=== PATIENT | male | born 1955 | race Caucasian/White ===

== ENCOUNTER → 2016-04-07 | Outpatient (CLI) | payer OTHER ==
[2016-04-07 12:44] VITALS: BP 123/83; PULSE 80; RESP 16; TEMP 98
--- NOTE | 2016-04-08 12:26 | P.PN ---
Subjective This is follow-up visit for this patient with a history of severe and chronic low back pain secondary to lumbar degenerative disc disease, lumbar facet arthropathy, we have done diagnostic medial branch block and it was successful and patient supposed to have radiofrequency ablation of the medial branch, but the patient had acute ischemic stroke and he has to be placed on Plavix and the patient cannot stop his Plavix for a few days because he had acute stroke, and we have to delay the radiofrequency ablation of the medial branch until patient will be able to hold his Plavix for 1 week, , and is currently on pain medications [place] 10/325 every 6 hours , methadone 5 mg every 8 hours, Neurontin 800 mg 3 times a day Patient denies any side effects of the medication, denies excessive drowsiness or sleepiness, denies suicidal ideation, and reports that the current pain medication is NOT helping To control the pain and improve activity of daily living Physical Examinations : 1-Constitutiona : Cooperative , not in acute distress . 2-HEENT : nech ; supple , no Lymphadenopathy , no Thyromegaly , normal thyroid size . eyes : no ptosis , no icterus, no photophobia . ENT : normal of hearing , normal oropharynx , no Thrush . 3- Respiratory : Chest clear to auscultations Bilaterally , no wheezing , no Rhonchi . 4- Cardiovascular : regular rate and rhythem , S1 , S2 , no S3 , no S4. 5- Gastrointestinal : abdomen soft no tenderness , bowel sounds positive all four quadrents , no organomegally . 6- Genitourinary : Defferred . 7- neurologic : Cranial nerve II to XII intact , no focal neurological deffecit . 8-psychatric : alert , oriented X 3 , appropriate affect , intact judgment and insight . 9-Lymphatic : no Lymphadenopathy . 10- musculoskeltal : exams of the cervical spine = motor strength normal bilateral upper extremities facet loading test cervical area positive. exams of the Lumber spine = motor strength lower extremities ,thigh and legs .4/5 lumber facet Loading Test positive Assessment and plan = - Chronic low back pain secondary to lumbar degenerative disc disease , lumbar spondylosis with facet arthropathy without myelopathy , Patient will be good candidate to have radiofrequency ablation of the medial branch (patient had positive results after the diagnostic block ), currently on Plavix , had ischemic stroke 2 months ago, patient could be scheduled to have radiofrequency of the medial branch lumbar area , in a few months if the neurologist allow us to hold the Plavix -chronic and current use of high-risk medication (Opioids). The patient was counseled about risk of opioid use, psychological risk associated with opioids and was orally counseled to not overuse , abuse , divert ,or sell dictations to take medications as prescribed only , and to restore medication in safe location , and patient counseled against driving while using narcotic medications, and also not to use alcohol or any illicit recreational drugs the patient's verbalized understanding that the lack of compliance will result in failure to renew narcotic prescription and possible discharge from the clinic - diagnoses, prognosis, and treatment options including but not limited to physical therapy, surgical interventions, interventional therapies and medication management including narcotics and adjuvant medication were discussed with the patient and all questions answered to the patient's satisfaction. -medication refile =1-[place] 10/325 every 6 hours dispense 120 with one refill 2- methadone 5 mg every 8 hours dispense 90 with 1 refill 3- Neurontin 800 mg every 8 hours dispense 90 with 1 refill and he will follow up in the pain clinic in 2 months Objective - Vital Signs Vital signs: Vital Signs Temp 98 F 04/07/16 12:36 Pulse 80 04/07/16 12:36 Resp 16 04/07/16 12:36 BP 123/83 04/07/16 12:36 Pulse Ox 96 04/07/16 12:36 Intake & Output 04/07/16 04/08/16 04/08/16 18:59 06:59 18:59 Weight 77.564 kg
== END | disposition home or self-care (01) ==
LOC: PNWHC3 12:18
PROVIDERS: ATTEND Specialist
DX: M51.36 Other intervertebral disc degeneration, lumbar region (principal); G89.29 Other chronic pain; M54.5 Low back pain; M47.816 Spondylosis without myelopathy or radiculopathy, lumbar region; Z79.891 Long term (current) use of opiate analgesic
CPT/HCPCS: 99211

== ENCOUNTER → 2016-04-14 | Outpatient (CLI) | payer OTHER ==
--- NOTE | 2016-04-14 11:57 | FL ---
EXAMINATION TYPE: FL barium swallow w video DATE OF EXAM: 04/14/2016 11:34 AM MODIFIED SWALLOW / DEGLUTITION STUDY CLINICAL HISTORY: Dysphagia. History of prior stroke with aspiration TECHNIQUE: Deglutition study is performed utilizing thin liquid barium, honey and nectar thick liqui d barium, barium thick applesauce, and barium coated cracker. A total of 3 minutes 14 seconds of fluo roscopic time was utilized during procedure. COMPARISON: None. FINDINGS: The oral and pharyngeal phases show satisfactory initiation and propagation with all modali ties tested initially. Some delay or weakening with premature spilling is seen towards end of exam. Satisfactory mastication is seen with solid modalities tested. There is deep penetration with chinedu aspiration that does not initiate cough reflex with thin liquid barium. A single large bolus of necta r thick liquid barium also causes aspiration without cough reflex. Other more viscous modalities show no evidence of penetration or aspiration. Mild to severe pharyngeal residuals are noted more promine nt with more viscous modalities. IMPRESSION: Recurrent Penetration and some chinedu aspiration with thin liquid barium remains present. Please refer to speech therapist notes for further details if necessary.
== END | disposition home or self-care (01) ==
LOC: RADFLMAIN 11:12
PROVIDERS: ATTEND Family Medicine
DX: R13.10 Dysphagia, unspecified (principal)
CPT/HCPCS: 74230

== ENCOUNTER → 2016-06-02 | Outpatient (CLI) | payer MEDICARE, OTHER ==
[2016-06-02 12:12] VITALS: BP 116/71; PULSE 84; RESP 18; TEMP 97.8
--- NOTE | 2016-06-03 18:48 | P.PN ---
Subjective This is follow-up visit for this patient with a history of severe and chronic low back pain secondary to lumbar degenerative disc disease lumbar facet arthropathy, we have done interventional pain management injection, a classic medial branch block lumbar area and patient Had a good result with the diagnostic block was supposed to have radiofrequency ablation of the medial branch lumbar area, and the Radiofrequency ablation was delayed because patient had ischemic stroke on his currently on Plavix, and he cannot stop it until September 2016 Currently patient on 1- Neurontin 800 mg 3 times a day 2-methadone 5 mg 3 times a day 3- [place] 10/325 every 6 hours Patient denies any side effects of the medication, denies excessive drowsiness or sleepiness, denies suicidal ideation, and reports that the current pain medication is NOT helping To control the pain and improve activity of daily living Physical Examinations : 1-[place]stitutiona : Cooperative , not in acute distress . 2-HEENT : nech ; supple , no Lymphadenopathy , no Thyromegaly , normal thyroid size . eyes : no ptosis , no icterus, no photophobia . ENT : normal of hearing , normal oropharynx , no Thrush . 3- Respiratory : Chest clear to auscultations Bilaterally , no wheezing , no Rhonchi . 4- Cardiovascular : regular rate and rhythem , S1 , S2 , no S3 , no S4. 5- Gastrointestinal : abdomen soft no tenderness , bowel sounds positive all four quadrents , no organomegally . 6- Genitourinary : Defferred . 7- neurologic : Cranial nerve II to XII intact , no focal neurological deffecit . 8-psychatric : alert , oriented X 3 , appropriate affect , intact judgment and insight . 9-Lymphatic : no Lymphadenopathy . 10- musculoskeltal : exams of the Lumber spine = motor strength lower extremities ,thigh and legs .4/5 deep tendon reflexes : normal Knee Jerk , normal ankle Jerk . lumber facet Loading Test positive Assessment and plan = - Chronic low back pain secondary to lumbar degenerative disc disease , lumbar spondylosis with facet arthropathy without myelopathy , - chronic and current use of high-risk medication (Opioids). The patient was counseled about risk of opioid use, psychological risk associated with opioids and was orally counseled to not overuse , divert,or sell dictations to take medications as prescribed only , and to restore medication in safe location , and the patient counseled against driving while using narcotic medications, and also not to use alcohol or any illicit recreational drugs, the patient's verbalized understanding that the lack of compliance will result in failure to renew narcotic prescription and possible discharge from the clinic - diagnoses, prognosis, and treatment options including but not limited to physical therapy, surgical interventions, interventional therapies , and medication management including narcotics and adjuvant medication were discussed with the patient and all The questions answered -medication management = [place] 10/325 every 6 hours dispensed 120 with one refill , methadone 5 mg every 8 hours dispense 90 with 1 refill Neurontin 800 mg 3 times a day dispensed 90 with 1 refill and he will follow up in 2 months -procedure= normal at this point, consider radiofrequency ablation of medial branch lumbar area when he is able to stop Plavix for 1 week Objective - Vital Signs Vital signs: Vital Signs Temp 97.8 F 06/02/16 12:03 Pulse 84 06/02/16 12:03 Resp 18 06/02/16 12:03 BP 116/71 06/02/16 12:03 Pulse Ox Intake & Output 06/02/16 06/03/16 06/03/16 18:59 06:59 18:59 Weight 77.111 kg
== END ==
LOC: PNWHC3 11:39
PROVIDERS: ATTEND Specialist
DX: M51.36 Other intervertebral disc degeneration, lumbar region (principal); M47.816 Spondylosis without myelopathy or radiculopathy, lumbar region; M46.86 Other specified inflammatory spondylopathies, lumbar region; G89.29 Other chronic pain; Z87.891 Personal history of nicotine dependence
CPT/HCPCS: 99211

== ENCOUNTER → 2016-08-24 | Outpatient (CLI) | payer MEDICARE ==
[2016-08-24 12:05] VITALS: BP 100/68; PULSE 80; RESP 16; TEMP 98
--- NOTE | 2016-08-24 12:35 | P.PN ---
Progress Note - Text Patient returns for followup for chronic groin pain from ilioinguinal neuralgia and axial back pain without radiation to the lower extremities. Patient recently underwent second lumbar MBB earlier in January 2016 which has lasted for >3 weeks' interval of significant improvement in pain, but unfortunately sustained a stroke after, and it is believed to be due to his being off Plavix. Patient continues on methadone, [place], and Neurontin medications for pain with good relief. Patient denies adverse drug effects from medications. Today , pt denies new-onset weakness, bowel/bladder incontinence, or any other signs or symptoms of cauda equina syndrome. There are no signs of acute intoxication, and no indications of medication diversion or overuse. In addition to above, 13-point review of systems is also negative for chest pain , shortness of breath, changes in vision, changes in hearing, new onset weakness , abdominal pain, diarrhea, extreme fatigue, malaise, fever, skin changes, homicidal or suicidal ideation, or bowel or bladder incontinence. Vital Signs: Reviewed in EMR Gen: WDWN, AAOx3, NAD HEENT: NCAT, EOMI, hearing grossly normal Pulm: resp unlabored Abd: soft, NT, ND Neck: supple, trachea midline ROM in flexion lumbar spine: reduced ROM in extension lumbar spine: reduced Lumbar paravertebral tenderness: ++ Facet loading: ++ bilateral, R > L SI joint tenderness: mildly + R side, neg L side Valentin's test: + bilateral, R >> L Straight leg raise: neg bilateral Neuro: CN II-XII grossly intact, muscle strength lower extremities PRESERVED Imaging: Reviewed in EMR Assessment: 1. lumbar spondylosis without myelopathy 2. sacroiliitis 3. chronic pain syndrome Plan: 1. Explanation: Opioid and psychological risk scores were reviewed. Diagnoses , prognoses, and multiple treatment options including but not limited to physical therapy, interventional therapies, adjuvant medical therapies, narcotic medication therapies, and surgery were discussed with the patient and all questions were answered to the patient's satisfaction. 2. Opioid agreement: Patient has previously signed narcotic agreement, and was orally counseled to not overuse, abuse, divert, or cell medications, and to take them as prescribed by only 1 healthcare provider. The patient was also counseled to store opioid medications in a safe and preferably locked location. Patient was also counseled against driving while using narcotic medications and also to not use alcohol or any illicit or recreational drugs. The patient verbalized understanding that lack of compliance with any of the above and likely result in failure to renew narcotic prescriptions, possible discharge from the clinic, and possible legal ramifications thereafter if indicated. 3. Counseling: The patient was counseled extensively on SMOKING CESSATION, BODY MASS INDEX, EXERCISE. Specifically, the patient was instructed regarding the importance of smoking cessation, weight loss, and exercise in the context of both chronic pain and overall health. 4. Procedures: discussed lumbar RFA with patient, he wishes to defer for now 5. Consultations: None 6. Investigations: None for now 7. Medications: Methadone 5 mg #90, [place] 10/325 (decreased to #105 for next month, #90 after that), Neurontin 800 mg #90, lidocaine ointment x 2 months 8. Disposition: f/u for re-eval in 8 weeks PQRS measures: 1-Patient's medications are documented in the chart. 2-Tobacco use is negative 3-Patient has had a pneumococcal vaccine. 4-Advanced care planning discussed, patient unable to give. 5-Opioid contract previously signed with the patient. 6-Pain positive, follow-up visit or procedure scheduled 7-Patient's blood pressure measured and documented, and patient will follow up with the primary care due to hypertension. 8-Patient's weight was measured, and body mass index ABOVE the normal limits, and counseling was done. Patient instructed to follow up with PCP. 9-Patient WAS NOT identified as an unhealthy alcohol user.
== END | disposition home or self-care (01) ==
LOC: PNWHC3 11:37
PROVIDERS: ATTEND Anesthesiology
DX: M47.816 Spondylosis without myelopathy or radiculopathy, lumbar region (principal); M46.1 Sacroiliitis, not elsewhere classified; G89.4 Chronic pain syndrome
CPT/HCPCS: 99211

== ENCOUNTER → 2016-10-19 | Outpatient (CLI) | payer MEDICARE ==
[2016-10-19 11:57] VITALS: BP 109/60; PULSE 77; RESP 18; TEMP 98.3
--- NOTE | 2016-10-19 13:19 | P.PN ---
Progress Note - Text This is a 61-year-old male with history of left ilioinguinal neuralgia and axial lower back pain due to lumbar spondylosis. The patient recently had a stroke in January 2016. He still feels dizzy in the morning since his stroke. His pain has been well-controlled with [place] and the Neurontin. He is alert oriented 3 in no apparent distress today he denies any new neurologic symptoms since his last visit to our clinic. He does not show any oversedation symptoms. He does not show any drug-seeking behavior. The patient had multiple injections in his back and the left ilioinguinal nerve which gave him temporary relief of pain. Right now he is on Plavix due to his recent stroke. Today I will refill his oral analgesics and we'll see him in 3 months from now.
== END | disposition home or self-care (01) ==
LOC: PNWHC3 11:42
PROVIDERS: ATTEND Anesthesiology
DX: M47.816 Spondylosis without myelopathy or radiculopathy, lumbar region (principal)
CPT/HCPCS: 99211

== ENCOUNTER → 2017-02-28 | Outpatient (CLI) | payer MEDICARE ==
[2017-02-28 14:51] VITALS: BP 113/76; PULSE 79; RESP 16
--- NOTE | 2017-02-28 15:15 | P.PN ---
Progress Note - Text Progress Note Date: 02/28/17 This is a 61-year-old male with history of left ilioinguinal neuralgia and lumbar spondylosis without myelopathy. The patient is on Plavix due to stroke. He tried to switch from Neurontin to Lyrica however Lyrica made him very weak and he had to stop using it right now he takes only methadone and [place] for his pain. The patient does not feel that Neurontin was helping his pain anyway. Alert oriented 3 in no apparent distress. He does not show any signs of oversedation and he does not show any drug-seeking behavior. He denies any side effects to the above-mentioned medications except for constipation that he treats easily with MiraLAX. Today I will give her prescription for 3 months of methadone and [place]. As of methadone so the risk of prolonged QT is minimal ,however we can do 12 lead EKG on his next visit to be on the safe side.
== END ==
LOC: PNWHC3 13:47
PROVIDERS: ATTEND Anesthesiology
DX: M47.816 Spondylosis without myelopathy or radiculopathy, lumbar region (principal); Z79.899 Other long term (current) drug therapy
CPT/HCPCS: 99211

== ENCOUNTER → 2017-05-23 | Outpatient (CLI) | payer MEDICARE ==
[2017-05-23 14:22] VITALS: BP 114/69; PULSE 75; RESP 16
--- NOTE | 2017-05-23 15:02 | P.PN ---
Progress Note - Text Progress Note Date: 05/23/17 This is a 61-year-old male with history of left ilioinguinal neuralgia and lumbar spondylosis without myelopathy. The patient is on Plavix due to stroke. He tried to switch from Neurontin to Lyrica however Lyrica made him very weak and he had to stop using it right now he takes only methadone and [place] for his pain. The patient is Alert oriented 3 in no apparent distress. He does not show any signs of oversedation and he does not show any drug-seeking behavior. He denies any side effects to the above-mentioned medications except for constipation that he treats easily with MiraLAX. chronic and current use of high-risk medication (Opioids). The patient was counseled about risk of opioid use, psychological risk associated with opioids and was orally counseled to not overuse , abuse , divert ,or sell dictations to take medications as prescribed only , and to restore medication in safe location , and patient counseled against driving while using narcotic medications, and also not to use alcohol or any illicit recreational drugs the patient's verbalized understanding that the lack of compliance will result in failure to renew narcotic prescription and possible discharge from the clinic - diagnoses, prognosis, and treatment options including but not limited to physical therapy, surgical interventions, interventional therapies and medication management including narcotics and adjuvant medication were discussed with the patient and all questions answered to the patient's satisfaction. I will give the patient prescription for 3 months of methadone and [place]. I will also do urine drug screen on him today.
== END | disposition home or self-care (01) ==
LOC: PNWHC3 13:33
PROVIDERS: ATTEND Anesthesiology
DX: G58.8 Other specified mononeuropathies (principal); M47.816 Spondylosis without myelopathy or radiculopathy, lumbar region; Z79.899 Other long term (current) drug therapy; Z79.891 Long term (current) use of opiate analgesic
CPT/HCPCS: 99211

== ENCOUNTER → 2017-08-15 | Outpatient (CLI) | payer MEDICARE ==
[2017-08-15 12:54] VITALS: BP 102/66; PULSE 82; RESP 16
--- NOTE | 2017-08-16 14:44 | P.PAINPG ---
Subjective Progress Note Date: 08/15/17 This is a follow-up visit for this 62 years old male with a history of severe and chronic low back pain and left groin pain, his day course with lumbar spondylosis with lumbar facet arthropathy without myelopathy, and left ilioinguinal neuralgia, in the past we have done left ilioinguinal nerve block to treat his left groin pain, and also we have done medial branch block, patient currently getting Plavix because he had recent stroke, and he continued to use methadone 5 mg every 8 hours, and [place] 10/325 every 8 hours when necessary, and Lyrica 75 mg 3 times a day, and he is getting prescription for Xanax 0.25 3 times a day from his primary care, patient reported the current pain medication helping him to control his pain and he denies any side effect of the medication, he denies any excessive drowsiness or sleepiness and he reported the current medication management is being appropriately, he denies any change in the bowel movement organization he denies any fever or night sweats . Objective - Vital Signs Vital signs: Vital Signs Temp Pulse 82 08/15/17 12:50 Resp 16 08/15/17 12:50 BP 102/66 08/15/17 12:50 Pulse Ox 95 08/15/17 12:50 Intake & Output 08/15/17 08/16/17 08/16/17 18:59 06:59 18:59 Weight 73.028 kg - Exam Physical Examinations : 1-[place] : Cooperative , not in acute distress . 2-HEENT : nech ; supple , no Lymphadenopathy , normal thyroid size . eyes : no ptosis , no icterus , no photophobia . ENT : normal of hearing , normal oropharynx , no Thrush . 3- Respiratory : Chest clear to auscultations Bilaterally , no wheezing , no Rhonchi . 4- Cardiovascular : regular rate and rhythem , S1 , S2 , no S3 , no S4. 5- Gastrointestinal : abdomen soft no tenderness , bowel sounds , no organomegally . 6- Genitourinary : Defferred . 7- neurologic : Cranial nerve II to XII intact , no focal neurological deffecit . 8-psychatric : alert , oriented X 3 , appropriate affect , intact judgment and insight . 9-Lymphatic : no Lymphadenopathy . 10- musculoskeltal : Allodynia on the left and groin area Assessment and Plan Plan: Assessment and plan= chronic low back pain secondary to , lumbar spondylosis with lumbar facet arthropathy . Chronic left groin pain secondary to left ilioinguinal neuralgia chronic and current use of high-risk medication (opioids) Patient denies any side effects of the current pain medication and the current treatment/medication helping the patient to do activity of daily living , Diagnoses, prognosis, treatment options, including but not limited to physical therapy, medication management, interventional therapies, and surgery, were discussed with the patient All the questions answered The narcotic consent was signed and patient agreed and understood the side effects and complications of opioid treatment. Patient signed the narcotic agreement, and was orally counseled, not to overuse, not to abuse, not to Divert , not tp sell pain medication, and to take it as prescribed only, Patient was counseled not to drive or operate heavy equipment while using narcotic medication, and advised not to use alcohol or any Illicit drugs while using the narcotis, the patient's verbalized understanding that lack of compliance with any of the above instructions, will likely to cause discharge from, the pain service, not to renew his narcotic prescriptions Medication managements= patient will be given prescription refills for Lyrica 75 mg 3 times a day dispense 90 with 1 refill, methadone 5 mg every 8 hours dispense 90 with 1 refill [place] 10/325 every 8 hours dispense 90 with 1 refill , note = because patient currently on opioid and also is receiving Xanax 0.25 mg from his primary care, and this week the patient at high risk for respiratory depression, The form regarding the risk of combination of benzodiazepine , and opiate was faxed to the primary care Next visit we'll do urine drug screen , Time with Patient: Less than 30 PQRS Measure Charge Sheet Measure #130: Documentation of Current Meds in Medical Chart: Patient's medications documented in chart Measure #226: Tobacco Use: Screen & Cessation Intervention: Pt screened for tobacco use AND intervention given Measure #111: Pneumonia Vaccination: Pneumococcal vaccine administered or previously received Measure #47: Advance Care Plan: Advance care planning discussed & documented, pt chose/unable to give Measure #412: Opioid Treatment Agreement: Documented signed opioid trtmnt agreemnt min once during opioid trtmnt Measure #408: Opioid Therapy Follow-up Evaluation: Patient had f/u eval minimum every 3 months during opioid therapy Measure #317: Preventitive Care & Scrn High Bld Press & F/U: Normal blood pressure, f/u not required Measure #128: Body Mass Index (BMI) Screening & Follow-up: BMI documented ABOVE normal parameters - f/u documented Measure #131: Pain Assessment & Follow-up: Pain positive & plan documented, Follow-up scheduled Measure #431: Unhealthy Alcohol Use Preventative Care & Scrn: Patient not identified as an unhealthy alcohol user PQRS Narrative: Smoking Status Former smoker Do You Want the Pneumonia Vaccine Up to Date Vaccine AT THIS TIME? Narcotic Agreement Date Signed 04/07/16 Blood Pressure 102/66 Pain Intensity [Lower Back] 7 Scale Used Numeric (1 - 10) Hx Alcohol Use (MH) Yes: OCC. 1 q d Home Medications: Ambulatory Orders Omeprazole [PriLOSEC] 20 cap PO DAILY PRN 07/24/13 Clopidogrel [Plavix] 75 mg PO DAILY 01/14/14 Levothyroxine Sodium [Synthroid] 75 mcg PO QAM 07/01/14 Atorvastatin [Lipitor] 20 mg PO HS 09/19/15 PARoxetine [Paxil] 20 mg PO DAILY 02/10/16 Multivitamins, Thera [Multivitamin (formulary)] 1 each PO DAILY@1200 #30 tab 05/27 ALPRAZolam [Xanax] 0.25 mg PO TID PRN 04/07/16 Aspirin 81 mg PO DAILY 04/07/16 Chlorthalidone 25 mg PO DAILY 04/07/16 Lisinopril [Prinivil] 5 mg PO BID 04/07/16 Tamsulosin HCl [Flomax] 1 cap PO DAILY 04/07/16 Finasteride [Proscar] 5 mg PO HS 06/02/16 Lidocaine 5% Oint [Xylocaine 5% Oint] 1 applic TOPICAL TID PRN #1 tube 08/24/16 HYDROcodone/APAP 10-325MG [[place] 10-325] 1 tab PO Q8H PRN #90 tab 08/15/17 HYDROcodone/APAP 10-325MG [[place] 10-325] 10 mg PO Q8HR #90 tab 08/15/17 Methadone HCl [Dolophine HCl] 5 mg PO Q8HR #90 tab 08/15/17 Methadone [Dolophine] 5 mg PO Q8HR #90 tab 08/15/17 Pregabalin [Lyrica] 75 mg PO TID #90 cap 08/15/17 Controlled Substance Measures - Controlled Substance Measures Is patient prescribed a controlled substance at discharge?: Yes When asked, does pt state using other controlled substances?: Yes If prescribed controlled substance>3 days was MAPS reviewed?: Yes If Rx opioid, was Start Talking consent form obtained?: Yes If opioid is for acute pain is fill amount 7 days or less?: No Was information provided regarding opioid addiction?: Yes
== END | disposition home or self-care (01) ==
LOC: PNWHC3 11:57
PROVIDERS: ATTEND Specialist
DX: G89.29 Other chronic pain (principal); M47.816 Spondylosis without myelopathy or radiculopathy, lumbar region; M46.96 Unspecified inflammatory spondylopathy, lumbar region; R10.32 Left lower quadrant pain; G57.82 Other specified mononeuropathies of left lower limb; Z79.891 Long term (current) use of opiate analgesic; Z87.891 Personal history of nicotine dependence; Z79.02 Long term (current) use of antithrombotics/antiplatelets; Z79.899 Other long term (current) drug therapy; Z79.82 Long term (current) use of aspirin
CPT/HCPCS: 99211

== ENCOUNTER → 2017-10-17 | Outpatient (CLI) | payer MEDICARE ==
[2017-10-17 13:28] VITALS: BP 100/55; PULSE 73; RESP 18; TEMP 98.1
--- NOTE | 2017-10-17 14:00 | P.PAINPG ---
Subjective Progress Note Date: 10/17/17 This is follow-up visit for this patient with a history of severe and chronic low back pain Diagnosed with , lumbar spondylosis with facet arthropathy, and left groin pain diagnosed with left ilioinguinal neuralgia We have done interventional pain procedures, ilioinguinal nerve block and diagnostic medial branch block Patients currently on Plavix, as he had recent stroke and his primary care/ neurologist recommended not to stop his Plavix Patient currently on methadone 5 mg every 8 hours, and [place] 10/325 every 8 hours when necessary for breakthrough pain Patient denies any side effects of the medication, denies excessive drowsiness or sleepiness, denies suicidal ideation, and reports that the current pain medication is helping to control the pain ,and improve activity of daily living Patient denies any motor or sensory deficit , patient denies any fever or night sweats, denies any change in the bowel movements or urination Patient used Lyrica in the past and he had side effects from it, and he used Neurontin in the past he had no benefit from it Physical Examinations : 1-Constitutional : Cooperative , not in acute distress . 2-HEENT : nech ; supple , no Lymphadenopathy , no Thyromegaly , normal thyroid size . eyes : no ptosis , no icterus, no photophobia . ENT : normal of hearing , normal oropharynx , no Thrush . 3- Respiratory : Chest clear to auscultations Bilaterally , no wheezing , no Rhonchi . 4- Cardiovascular : regular rate and rhythem , S1 , S2 , no S3 , no S4. 5- Gastrointestinal : abdomen soft no tenderness , bowel sounds positive all four quadrents , no organomegally . 6- Genitourinary : Defferred . 7- neurologic: Cranial nerve II to XII intact , no focal neurological deffecit . 8- Psychatric: alert , oriented X 3 , appropriate affect , intact judgment and insight . 9- Lymphatic : no Lymphadenopathy . 10- Musculoskeltal : exams of the Lumber spine =motor strength lower extremities ,thigh and legs .5/5 Assessment and plan = Chronic low back pain secondary to , lumbar spondylosis with facet arthropathy without myelopathy Chronic severe left groin pain, secondary to left ilioinguinal neuralgia chronic and current use of high-risk medication (Opioids). The patient was counseled about risk of opioid use, psychological risk associated with opioids and was orally counseled to not overuse , divert,or sell dictations to take medications as prescribed only , and to restore medication in safe location , the patient counseled against driving while using narcotic medications , and also not to use alcohol or any illicit recreational drugs, patient's verbalized understanding that the lack of compliance will result in failure to renew narcotic prescription and possible discharge from the clinic - diagnoses, prognosis, and treatment options including but not limited to physical therapy, surgical interventions, interventional therapies , and medication management including narcotics and adjuvant medication were discussed with the patient and all the questions answered Prescription refill for methadone 5 mg every 8 hours dispense 90 with 1 refill, [place] 10/325 every 8 hours dispense 90 with 1 refill Patient is not a candidate for interventional pain management because his currently on Plavix, and he cannot stop it for a few days because his high risk for stroke Urine drug screen ordered today Objective - Vital Signs Vital signs: Vital Signs Temp 98.1 F 10/17/17 13:21 Pulse 73 10/17/17 13:21 Resp 18 10/17/17 13:21 BP 100/55 10/17/17 13:21 Pulse Ox Intake & Output 10/16/17 10/17/17 10/17/17 18:59 06:59 18:59 Weight 72.575 kg PQRS Measure Charge Sheet Measure #130: Documentation of Current Meds in Medical Chart: Patient's medications documented in chart Measure #226: Tobacco Use: Screen & Cessation Intervention: Pt screened for tobacco use AND intervention given Measure #111: Pneumonia Vaccination: Pneumococcal vaccine administered or previously received Measure #47: Advance Care Plan: Advance care planning discussed & documented, pt chose/unable to give Measure #412: Opioid Treatment Agreement: Documented signed opioid trtmnt agreemnt min once during opioid trtmnt Measure #408: Opioid Therapy Follow-up Evaluation: Patient had f/u eval minimum every 3 months during opioid therapy Measure #317: Preventitive Care & Scrn High Bld Press & F/U: Normal blood pressure, f/u not required Measure #128: Body Mass Index (BMI) Screening & Follow-up: BMI documented within normal parameters Measure #131: Pain Assessment & Follow-up: Pain positive & plan documented, Follow-up scheduled Measure #431: Unhealthy Alcohol Use Preventative Care & Scrn: Patient not identified as an unhealthy alcohol user PQRS Narrative: Smoking Status Current every day smoker Do You Want the Pneumonia Vaccine Up to Date Vaccine AT THIS TIME? Narcotic Agreement Date Signed 04/07/16 Blood Pressure 100/55 Pain Intensity [Lower Back] 7 Pain Intensity [Left Lower 4 Abdomen] Hx Alcohol Use (MH) Yes: OCC. 1 q d Home Medications: Ambulatory Orders Omeprazole [PriLOSEC] 20 cap PO DAILY PRN 07/24/13 Clopidogrel [Plavix] 75 mg PO DAILY 01/14/14 Levothyroxine Sodium [Synthroid] 75 mcg PO QAM 07/01/14 Atorvastatin [Lipitor] 20 mg PO HS 09/19/15 PARoxetine [Paxil] 20 mg PO DAILY 02/10/16 Multivitamins, Thera [Multivitamin (formulary)] 1 each PO DAILY@1200 #30 tab 05/27 ALPRAZolam [Xanax] 0.25 mg PO TID PRN 04/07/16 Aspirin 81 mg PO DAILY 04/07/16 Chlorthalidone 25 mg PO DAILY 04/07/16 Lisinopril [Prinivil] 5 mg PO BID 04/07/16 Tamsulosin HCl [Flomax] 1 cap PO DAILY 04/07/16 Finasteride [Proscar] 5 mg PO HS 06/02/16 Lidocaine 5% Oint [Xylocaine 5% Oint] 1 applic TOPICAL TID PRN #1 tube 08/24/16 HYDROcodone/APAP 10-325MG [[place] 10-325] 10 mg PO Q8HR #90 tab 10/17/17 Hydrocodone/Acetaminophen [[place] 10-325] 1 tab PO Q8H PRN 30 Days #90 tab Methadone HCl [Dolophine HCl] 5 mg PO Q8H 30 Days #90 tab 10/17/17 Methadone HCl [Dolophine HCl] 5 mg PO Q8HR #90 tab 10/17/17 Controlled Substance Measures - Controlled Substance Measures Is patient prescribed a controlled substance at discharge?: Yes When asked, does pt state using other controlled substances?: No If prescribed controlled substance>3 days was MAPS reviewed?: Yes If Rx opioid, was Start Talking consent form obtained?: Yes If opioid is for acute pain is fill amount 7 days or less?: No Was information provided regarding opioid addiction?: Yes
== END | disposition home or self-care (01) ==
LOC: PNWHC3 12:34
PROVIDERS: ATTEND Specialist
DX: G89.29 Other chronic pain (principal); M47.816 Spondylosis without myelopathy or radiculopathy, lumbar region; M46.96 Unspecified inflammatory spondylopathy, lumbar region; G57.82 Other specified mononeuropathies of left lower limb; R10.30 Lower abdominal pain, unspecified; Z87.891 Personal history of nicotine dependence; Z79.891 Long term (current) use of opiate analgesic; Z79.02 Long term (current) use of antithrombotics/antiplatelets; Z79.899 Other long term (current) drug therapy; Z79.82 Long term (current) use of aspirin
CPT/HCPCS: 80307; G0482; G0463; 99211

== ENCOUNTER → 2018-01-09 | Outpatient (CLI) | payer MEDICARE ==
[2018-01-09 12:47] VITALS: BP 105/68; PULSE 89; RESP 18; TEMP 98
--- NOTE | 2018-01-09 13:20 | P.PAINPG ---
Subjective Progress Note Date: 01/09/18 This is follow-up visit for this patient with a history of severe and chronic low back pain Diagnosed with , lumbar spondylosis with facet arthropathy, and left groin pain diagnosed with left ilioinguinal neuralgia We have done interventional pain procedures, ilioinguinal nerve block and diagnostic medial branch block Patients currently on Plavix, as he had recent stroke, and his primary care/ neurologist recommended not to stop his Plavix Patient currently on methadone 5 mg every 8 hours, and [place] 10/325 every 8 hours when necessary for breakthrough pain Patient denies any side effects of the medication, denies excessive drowsiness or sleepiness, denies suicidal ideation, and reports that the current pain medication is helping to control the pain ,and improve activity of daily living Patient denies any motor or sensory deficit , patient denies any fever or night sweats, denies any change in the bowel movements or urination Patient used Lyrica in the past and he had side effects from it, and he used Neurontin in the past he had no benefit from it Physical Examinations : 1-Constitutional : Cooperative , not in acute distress . 2-HEENT : nech ; supple , no Lymphadenopathy , no Thyromegaly , normal thyroid size . eyes : no ptosis , no icterus, no photophobia . ENT : normal of hearing , normal oropharynx , no Thrush . 3- Respiratory : Chest clear to auscultations Bilaterally , no wheezing , no Rhonchi . 4- Cardiovascular : regular rate and rhythem , S1 , S2 , no S3 , no S4. 5- Gastrointestinal : abdomen soft no tenderness , bowel sounds positive all four quadrents , no organomegally . 6- Genitourinary : Defferred . 7- neurologic: Cranial nerve II to XII intact , no focal neurological deffecit . 8- Psychatric: alert , oriented X 3 , appropriate affect , intact judgment and insight . 9- Lymphatic : no Lymphadenopathy . 10- Musculoskeltal : exams of the Lumber spine =motor strength lower extremities ,thigh and legs .5/5 Assessment and plan = Chronic low back pain secondary to , lumbar spondylosis with facet arthropathy without myelopathy , patient had a good result after the diagnostic medial branch block And we couldn't proceed with the radiofrequency ablation of the medial branch because patient had stroke, and he was placed on Plavix, and he cannot stop the Plavix, causing his primary care concerned about patient getting another stroke. Chronic severe left groin pain, secondary to left ilioinguinal neuralgia chronic and current use of high-risk medication (Opioids). The patient was counseled about risk of opioid use, psychological risk associated with opioids and was orally counseled to not overuse , divert,or sell dictations to take medications as prescribed only , and to restore medication in safe location , the patient counseled against driving while using narcotic medications , and also not to use alcohol or any illicit recreational drugs, patient's verbalized understanding that the lack of compliance will result in failure to renew narcotic prescription and possible discharge from the clinic - diagnoses, prognosis, and treatment options including but not limited to physical therapy, surgical interventions, interventional therapies , and medication management including narcotics and adjuvant medication were discussed with the patient and all the questions answered Prescription refill for methadone 5 mg every 8 hours dispense 90 with 1 refill, [place] 10/325 every 8 hours dispense 90 with 1 refill Patient is not a candidate for interventional pain management because his currently on Plavix, and he cannot stop it for a few days because his high risk for stroke Urine drug screen reviewed, and it was appropriate. MAPS reviewed ,and it was appropriate Objective - Vital Signs Vital signs: Vital Signs Temp 98 F 01/09/18 12:37 Pulse 89 01/09/18 12:37 Resp 18 01/09/18 12:37 BP 105/68 01/09/18 12:37 Pulse Ox 98 01/09/18 12:37 Intake & Output 01/08/18 01/09/18 01/09/18 18:59 06:59 18:59 Weight 72.575 kg PQRS Measure Charge Sheet Measure #130: Documentation of Current Meds in Medical Chart: Patient's medications documented in chart Measure #226: Tobacco Use: Screen & Cessation Intervention: Pt screened for tobacco use AND intervention given Measure #111: Pneumonia Vaccination: Pneumococcal vaccine administered or previously received Measure #47: Advance Care Plan: Advance care planning discussed & documented, pt chose/unable to give Measure #412: Opioid Treatment Agreement: Documented signed opioid trtmnt agreemnt min once during opioid trtmnt Measure #408: Opioid Therapy Follow-up Evaluation: Patient had f/u eval minimum every 3 months during opioid therapy Measure #317: Preventitive Care & Scrn High Bld Press & F/U: Normal blood pressure, f/u not required Measure #128: Body Mass Index (BMI) Screening & Follow-up: BMI documented within normal parameters Measure #131: Pain Assessment & Follow-up: Pain positive & plan documented, Follow-up scheduled Measure #431: Unhealthy Alcohol Use Preventative Care & Scrn: Patient not identified as an unhealthy alcohol user PQRS Narrative: Smoking Status Current every day smoker Do You Want the Pneumonia Vaccine Up to Date Vaccine AT THIS TIME? Narcotic Agreement Date Signed 04/07/16 Blood Pressure 105/68 Pain Intensity [Left Groin] 4 Pain Intensity [Lower Back] 4 Hx Alcohol Use (MH) Yes: OCC. 1 q d Home Medications: Ambulatory Orders Omeprazole [PriLOSEC] 20 cap PO DAILY PRN 07/24/13 Clopidogrel [Plavix] 75 mg PO DAILY 01/14/14 Levothyroxine Sodium [Synthroid] 75 mcg PO QAM 07/01/14 Atorvastatin [Lipitor] 20 mg PO HS 09/19/15 PARoxetine [Paxil] 20 mg PO DAILY 02/10/16 Multivitamins, Thera [Multivitamin (formulary)] 1 each PO DAILY@1200 #30 tab 05/27 ALPRAZolam [Xanax] 0.25 mg PO TID PRN 04/07/16 Aspirin 81 mg PO DAILY 04/07/16 Chlorthalidone 25 mg PO DAILY 04/07/16 Lisinopril [Prinivil] 5 mg PO BID 04/07/16 Tamsulosin HCl [Flomax] 1 cap PO DAILY 04/07/16 Finasteride [Proscar] 5 mg PO HS 06/02/16 Lidocaine 5% Oint [Xylocaine 5% Oint] 1 applic TOPICAL TID PRN #1 tube 08/24/16 HYDROcodone/APAP 10-325MG [[place] 10-325] 1 tab PO Q8HR PRN 30 Days #90 tab 01/09 HYDROcodone/APAP 10-325MG [[place] 10-325] 10 mg PO Q8HR #90 tab 01/09/18 Methadone HCl [Dolophine HCl] 5 mg PO Q8H 30 Days #90 tab 01/09/18 Methadone HCl [Dolophine HCl] 5 mg PO Q8H 30 Days #90 tab 01/09/18 Controlled Substance Measures - Controlled Substance Measures Is patient prescribed a controlled substance at discharge?: Yes When asked, does pt state using other controlled substances?: No If prescribed controlled substance>3 days was MAPS reviewed?: Yes If Rx opioid, was Start Talking consent form obtained?: Yes If opioid is for acute pain is fill amount 7 days or less?: No Was information provided regarding opioid addiction?: Yes
== END | disposition home or self-care (01) ==
LOC: PNWHC3 12:05
PROVIDERS: ATTEND Specialist
DX: G89.29 Other chronic pain (principal); M47.816 Spondylosis without myelopathy or radiculopathy, lumbar region; M46.96 Unspecified inflammatory spondylopathy, lumbar region; F17.200 Nicotine dependence, unspecified, uncomplicated; Z79.891 Long term (current) use of opiate analgesic; Z79.02 Long term (current) use of antithrombotics/antiplatelets; Z79.899 Other long term (current) drug therapy; Z79.82 Long term (current) use of aspirin
CPT/HCPCS: 99211

== ENCOUNTER → 2018-02-27 | Outpatient (CLI) | payer MEDICARE ==
[2018-02-27 12:13] VITALS: BP 106/59; PULSE 77; RESP 16
--- NOTE | 2018-02-27 12:30 | P.PN ---
Subjective Progress Note Date: 02/24/18 This is follow-up visit for this patient with a history of severe and chronic low back pain Diagnosed with , lumbar spondylosis with facet arthropathy, and left groin pain diagnosed with left ilioinguinal neuralgia We have done interventional pain procedures, ilioinguinal nerve block and diagnostic medial branch block Patients currently on Plavix, as he had recent stroke, and his primary care/ neurologist recommended not to stop his Plavix Patient currently on methadone 5 mg every 8 hours, and [place] 10/325 every 8 hours when necessary for breakthrough pain Patient denies any side effects of the medication, denies excessive drowsiness or sleepiness, he denies suicidal ideation, and reports that the current pain medication is helping to control the pain ,and improve activity of daily living Patient denies any motor or sensory deficit , patient denies any fever or night sweats, denies any change in the bowel movements or urination Patient used Lyrica in the past and he had side effects from it, and he used Neurontin in the past he had no benefit from it Physical Examinations : 1-Constitutional : Cooperative , not in acute distress . 2-HEENT : nech ; supple , no Lymphadenopathy , no Thyromegaly , normal thyroid size . eyes : no ptosis , no icterus, no photophobia . ENT : normal of hearing , normal oropharynx , no Thrush . 3- Respiratory : Chest clear to auscultations Bilaterally , no wheezing , no Rhonchi . 4- Cardiovascular : regular rate and rhythem , S1 , S2 , no S3 , no S4. 5- Gastrointestinal : abdomen soft no tenderness , bowel sounds positive all four quadrents , no organomegally . 6- Genitourinary : Defferred . 7- neurologic: Cranial nerve II to XII intact , no focal neurological deffecit . 8- Psychatric: alert , oriented X 3 , appropriate affect , intact judgment and insight . 9- Lymphatic : no Lymphadenopathy . 10- Musculoskeltal : exams of the Lumber spine =motor strength lower extremities ,thigh and legs .5/5 Assessment and plan = Chronic low back pain secondary to , lumbar spondylosis with facet arthropathy without myelopathy , patient had a good result after the diagnostic medial branch block And we couldn't proceed with the radiofrequency ablation of the medial branch because patient had stroke, and he was placed on Plavix, and he cannot stop the Plavix, causing his primary care concerned about patient getting another stroke. Chronic severe left groin pain, secondary to left ilioinguinal neuralgia chronic and current use of high-risk medication (Opioids). The patient was counseled about risk of opioid use, psychological risk associated with opioids and was orally counseled to not overuse , divert,or sell dictations to take medications as prescribed only , and to restore medication in safe location , the patient counseled against driving while using narcotic medications , and also not to use alcohol or any illicit recreational drugs, patient's verbalized understanding that the lack of compliance will result in failure to renew narcotic prescription and possible discharge from the clinic - diagnoses, prognosis, and treatment options including but not limited to physical therapy, surgical interventions, interventional therapies , and medication management including narcotics and adjuvant medication were discussed with the patient and all the questions answered Prescription refill for methadone 5 mg every 8 hours dispense 90 with 1 refill, [place] 10/325 every 8 hours dispense 90 with 1 refill Patient is not a candidate for interventional pain management because his currently on Plavix, and he cannot stop it for a few days because his high risk for stroke Urine drug screen reviewed, and it was appropriate. MAPS reviewed ,and it was appropriate PQRS Measure Charge Sheet Measure #130: Documentation of Current Meds in Medical Chart: Patient's medications documented in chart Measure #226: Tobacco Use: Screen & Cessation Intervention: Pt screened for tobacco use AND intervention given Measure #111: Pneumonia Vaccination: Pneumococcal vaccine administered or previously received Measure #47: Advance Care Plan: Advance care planning discussed & documented, pt chose/unable to give Measure #412: Opioid Treatment Agreement: Documented signed opioid trtmnt agreemnt min once during opioid trtmnt Measure #408: Opioid Therapy Follow-up Evaluation: Patient had f/u eval minimum every 3 months during opioid therapy Measure #317: Preventitive Care & Scrn High Bld Press & F/U: Normal blood pressure, f/u not required Measure #128: Body Mass Index (BMI) Screening & Follow-up: BMI documented within normal parameters Measure #131: Pain Assessment & Follow-up: Pain positive & plan documented, Follow-up scheduled Measure #431: Unhealthy Alcohol Use Preventative Care & Scrn: Patient not identified as an unhealthy alcohol user PQRS Narrative: Home Medications= Omeprazole [PriLOSEC] 20 cap PO DAILY PRN 05/13/14 Clopidogrel [Plavix] 75 mg PO DAILY 01/14/14 Levothyroxine Sodium [Synthroid] 75 mcg PO QAM 07/01/14 Atorvastatin [Lipitor] 20 mg PO HS 09/19/15 PARoxetine [Paxil] 20 mg PO DAILY 02/10/16 Multivitamins, Thera [Multivitamin (formulary)] 1 each PO DAILY@1200 #30 tab 05/27 ALPRAZolam [Xanax] 0.25 mg PO TID PRN 04/07/16 Aspirin 81 mg PO DAILY 04/07/16 Chlorthalidone 25 mg PO DAILY 04/07/16 Lisinopril [Prinivil] 5 mg PO BID 04/07/16 Tamsulosin HCl [Flomax] 1 cap PO DAILY 04/07/16 Finasteride [Proscar] 5 mg PO HS 06/02/16 Lidocaine 5% Oint [Xylocaine 5% Oint] 1 applic TOPICAL TID PRN #1 tube 08/24/16 HYDROcodone/APAP 10-325MG [[place] 10-325] 1 tab PO Q8HR PRN 30 Days #90 tab 01/09 HYDROcodone/APAP 10-325MG [[place] 10-325] 10 mg PO Q8HR #90 tab 01/09/18 Methadone HCl [Dolophine HCl] 5 mg PO Q8H 30 Days #90 tab 01/09/18 Methadone HCl [Dolophine HCl] 5 mg PO Q8H 30 Days #90 tab 01/09/18 - Controlled Substance Measures Is patient prescribed a controlled substance at discharge?: Yes When asked, does pt state using other controlled substances?: No If prescribed controlled substance>3 days was MAPS reviewed?: Yes If Rx opioid, was Start Talking consent form obtained?: Yes If opioid is for acute pain is fill amount 7 days or less?: No Was information provided regarding opioid addiction?: Yes
== END | disposition home or self-care (01) ==
LOC: PNWHC3 11:41
PROVIDERS: ATTEND Specialist
DX: G89.29 Other chronic pain (principal); M47.816 Spondylosis without myelopathy or radiculopathy, lumbar region; M46.96 Unspecified inflammatory spondylopathy, lumbar region; R10.32 Left lower quadrant pain; G58.8 Other specified mononeuropathies; Z79.891 Long term (current) use of opiate analgesic; Z79.02 Long term (current) use of antithrombotics/antiplatelets; Z79.899 Other long term (current) drug therapy; Z79.82 Long term (current) use of aspirin
CPT/HCPCS: 99211

== ENCOUNTER → 2018-04-24 | Outpatient (CLI) | payer MEDICARE ==
[2018-04-24 12:37] VITALS: BP 105/64; PULSE 95; RESP 16; TEMP 98.1
--- NOTE | 2018-04-24 12:55 | P.PN ---
Progress Note - Text Progress Note Date: 04/24/18 Patient returns for followup for chronic groin pain, low back pain, and central pain syndrome. Patient is currently been on chronic methadone use with good results for pain control. We decreased his [place] from 120 tablets to 90 tablets and is tolerating it well. No complications or side effects from the medication. There's been no change to his overall pain condition he still has some weakness in the distribution of his stroke, as well as some low back pain axial nature as well as inguinal pain. Today, pt denies new-onset weakness, bowel/bladder incontinence, or any other signs or symptoms of cauda equina syndrome. There are no signs of acute intoxication, and no indications of medication diversion or overuse. In addition to above, 13-point review of systems is also negative for chest pain , shortness of breath, changes in vision, changes in hearing, new onset weakness , abdominal pain, diarrhea, extreme fatigue, malaise, fever, skin changes, homicidal or suicidal ideation, or bowel or bladder incontinence. Vital Signs: Reviewed in EMR Gen: WDWN, AAOx3, NAD HEENT: NCAT, EOMI, hearing grossly normal Pulm: resp unlabored Abd: soft, NT, ND Neck: supple, trachea midline ROM in flexion lumbar spine: reduced ROM in extension lumbar spine: reduced Lumbar paravertebral tenderness: ++ Facet loading: ++ bilateral, R > L SI joint tenderness: mildly + R side, neg L side Valentin's test: + bilateral, R >> L Straight leg raise: neg bilateral Neuro: CN II-XII grossly intact, muscle strength lower extremities PRESERVED Imaging: Reviewed in EMR Assessment: 1. lumbar spondylosis without myelopathy 2. sacroiliitis 3. chronic pain syndrome 4. Ilioinguinal pain 5. Central pain syndrome Plan: 1. Explanation: Opioid and psychological risk scores were reviewed. Diagnoses , prognoses, and multiple treatment options including but not limited to physical therapy, interventional therapies, adjuvant medical therapies, narcotic medication therapies, and surgery were discussed with the patient and all questions were answered to the patient's satisfaction. 2. Opioid agreement: Patient has previously signed narcotic agreement, and was orally counseled to not overuse, abuse, divert, or cell medications, and to take them as prescribed by only 1 healthcare provider. The patient was also counseled to store opioid medications in a safe and preferably locked location. Patient was also counseled against driving while using narcotic medications and also to not use alcohol or any illicit or recreational drugs. The patient verbalized understanding that lack of compliance with any of the above and likely result in failure to renew narcotic prescriptions, possible discharge from the clinic, and possible legal ramifications thereafter if indicated. 3. Counseling: The patient was counseled extensively on SMOKING CESSATION, BODY MASS INDEX, EXERCISE. Specifically, the patient was instructed regarding the importance of smoking cessation, weight loss, and exercise in the context of both chronic pain and overall health. 4. Procedures: 5. Consultations: None 6. Investigations: We will conduct a 12-lead EKG today to assess QT interval. patient has not had one in our records for the past 3 years. 7. Medications: Methadone 5 mg #90, [place] 10/325 (decreased to #105 for next month, #90 after that), Neurontin 800 mg #90, lidocaine ointment x 2 months 8. Disposition: f/u for re-eval in 8 weeks PQRS measures: 1-Patient's medications are documented in the chart. 2-Tobacco use is negative 3-Patient has had a pneumococcal vaccine. 4-Advanced care planning discussed, patient unable to give. 5-Opioid contract previously signed with the patient. 6-Pain positive, follow-up visit or procedure scheduled 7-Patient's blood pressure measured and documented, and patient will follow up with the primary care due to hypertension. 8-Patient's weight was measured, and body mass index ABOVE the normal limits, and counseling was done. Patient instructed to follow up with PCP. 9-Patient WAS NOT identified as an unhealthy alcohol user.
== END ==
LOC: PNWHC3 11:51
PROVIDERS: ATTEND Anesthesiology
DX: G89.4 Chronic pain syndrome (principal); M47.816 Spondylosis without myelopathy or radiculopathy, lumbar region; M46.1 Sacroiliitis, not elsewhere classified; Z79.891 Long term (current) use of opiate analgesic; Z79.899 Other long term (current) drug therapy
CPT/HCPCS: 93005; G0463; 99211

== ENCOUNTER → 2018-06-19 | Outpatient (CLI) | payer MEDICARE ==
[2018-06-19 12:15] VITALS: BP 105/72; PULSE 83; RESP 16
--- NOTE | 2018-06-20 21:41 | P.PN ---
Subjective Progress Note Date: 06/19/18 This is follow-up visit for this patient with a history of severe and chronic low back pain Diagnosed with , lumbar spondylosis with facet arthropathy, and left groin pain diagnosed with left ilioinguinal neuralgia We have done interventional pain procedures, ilioinguinal nerve block and diagnostic medial branch block Patients currently on Plavix, as he had recent stroke, and his primary care/neurologist recommended not to stop his Plavix Patient currently on methadone 5 mg every 8 hours, and [place] 10/325 every 8 hours when necessary for breakthrough pain Patient denies any side effects of the medication, denies excessive drowsiness or sleepiness, denies suicidal ideation, and reports that the current pain medication is helping to control the pain ,and improve activity of daily living Patient denies any motor or sensory deficit , patient denies any fever or night sweats, denies any change in the bowel movements or urination Patient used Lyrica in the past and he had side effects from it, and he used Neurontin in the past he had no benefit from it Physical Examinations : 1-Constitutional : Cooperative , not in acute distress . 2-HEENT : nech ; supple , no Lymphadenopathy , no Thyromegaly , normal thyroid size . eyes : no ptosis , no icterus, no photophobia . ENT : normal of hearing , normal oropharynx , no Thrush . 3- Respiratory : Chest clear to auscultations Bilaterally , no wheezing , no Rhonchi . 4- Cardiovascular : regular rate and rhythem , S1 , S2 , no S3 , no S4. 5- Gastrointestinal : abdomen soft no tenderness , bowel sounds positive all f our quadrents , no organomegally . 6- Genitourinary : Defferred . 7- neurologic: Cranial nerve II to XII intact , no focal neurological deffecit . 8- Psychatric: alert , oriented X 3 , appropriate affect , intact judgment and insight . 9- Lymphatic : no Lymphadenopathy . 10- Musculoskeltal : exams of the Lumber spine =motor strength lower extremities ,thigh and legs .5/5 Facet loading test positive bilaterally Assessment and plan = Chronic low back pain secondary to , lumbar spondylosis with facet ar thropathy without myelopathy , patient had a good result after the diagnostic medial branch block And we couldn't proceed with the radiofrequency ablation of the medial branch because patient had stroke, and he was placed on Plavix, and he cannot stop the Plavix, causing his primary care concerned about patient getting another stroke. Chronic severe left groin pain, secondary to left ilioinguinal neuralgia chronic and current use of high-risk medication (Opioids). The patient was counseled about risk of opioid use, psychological risk associated with opioids and was orally counseled to not overuse , divert,or sell dictations to take medications as prescribed only , and to restore medication in safe location , the patient counseled against driving while using narcotic medications, and also not to use alcohol or any illicit recreational drugs, patient's verbalized understanding that the lack of compliance will result in failure to renew narcotic prescription and possible discharge from the clinic - diagnoses, prognosis, and treatment options including but not limited to physical therapy, surgical interventions, interventional therapies , and medication management including narcotics and adjuvant medication were discussed with the patient and all the questions answered Prescription refill for methadone 5 mg every 8 hours dispense 90 with 1 refill, [place] 10/325 every 8 hours dispense 90 with 1 refill The future we'll consider doing diagnostic medial branch block lumbar area without holding the Plavix will use 25-gauge needle, 21-iktly-wav Plavix only when we do the RFA if he has a positive result, this option will be discussed with the patient in the next visit Urine drug screen and previously and it was appropriate MAPS reviewed ,and it was appropriate PQRS Measure Charge Sheet Measure #130: Documentation of Current Meds in Medical Chart: Patient's medications documented in chart Measure #226: Tobacco Use: Screen & Cessation Intervention: Pt screened for tobacco use AND intervention given Measure #111: Pneumonia Vaccination: Pneumococcal vaccine administered or previously received Measure #47: Advance Care Plan: Advance care planning discussed & documented, pt chose/unable to give Measure #412: Opioid Treatment Agreement: Documented signed opioid trtmnt agreemnt min once during opioid trtmnt Measure #408: Opioid Therapy Follow-up Evaluation: Patient had f/u eval minimum every 3 months during opioid therapy Measure #317: Preventitive Care & Scrn High Bld Press & F/U: Normal blood pressure, f/u not required Measure #128: Body Mass Index (BMI) Screening & Follow-up: BMI documented within normal parameters Measure #131: Pain Assessment & Follow-up: Pain positive & plan documented, Follow-up scheduled Measure #431: Unhealthy Alcohol Use Preventative Care & Scrn: Patient not identified as an unhealthy alcohol user PQRS Narrative: - Controlled Substance Measures Is patient prescribed a controlled substance at discharge?: Yes When asked, does pt state using other controlled substances?: No If prescribed controlled substance>3 days was MAPS reviewed?: Yes If Rx opioid, was Start Talking consent form obtained?: Yes If opioid is for acute pain is fill amount 7 days or less?: No Was information provided regarding opioid addiction?: Yes Objective - Vital Signs Vital signs: Vital Signs Temp Pulse 83 06/19/18 12:12 Resp 16 06/19/18 12:12 BP 105/72 06/19/18 12:12 Pulse Ox 100 06/19/18 12:12
== END ==
LOC: PNWHC3 11:37
PROVIDERS: ATTEND Specialist
DX: G89.29 Other chronic pain (principal); M47.816 Spondylosis without myelopathy or radiculopathy, lumbar region; M46.96 Unspecified inflammatory spondylopathy, lumbar region; Z79.891 Long term (current) use of opiate analgesic; Z79.899 Other long term (current) drug therapy
CPT/HCPCS: 99211

== ENCOUNTER → 2018-08-14 | Outpatient (CLI) | payer MEDICARE ==
[2018-08-14 11:26] VITALS: BP 126/80; PULSE 86; RESP 18
--- NOTE | 2018-08-14 11:44 | P.PN ---
Subjective Progress Note Date: 08/14/18 Jadiel 63-year-old gentleman presents today for follow-up. He has chronic pain secondary to his low back pain and degenerative disc disease, pain secondary to left flank pain after having hernia surgery. He continues to have pain across his low back radiates into both legs. Reports pain down his legs to about the knee on both sides. He also reports pain along with numbness and tingling along the left flank and left lower abdomen. He reports he had this pain for many years and is doing well with the current pain medication regimens. He had multiple injections reports none of them really have helped significantly. At this point continues use methadone 5 mg 3 times per day as well as [place] 10 mg 2-3 times per day for breakthrough pain. He reports medication significant help him and denies any side effects in the medications. I inquired about his use of Xanax as is been filled in his maps. He reports he uses 2-3 times a week. I've discussed on the Xanax along with opioids and significantly increases risks for respiratory depression and . I made it very clear to him his using these medications together will break his narcotics contract and discussed that after the next prescription he should not have the filled anymore. The reports that she is ready sent out the next prescription to be filled since a use a mail order. Objective - Vital Signs Vital signs: Vital Signs Temp Pulse 86 08/14/18 11:21 Resp 18 08/14/18 11:21 BP 126/80 08/14/18 11:21 Pulse Ox 96 08/14/18 11:21 Intake & Output 08/13/18 08/14/18 08/14/18 18:59 06:59 18:59 Weight 71.214 kg - Exam General: Awake and alert oriented 3 no distress Respiratory exam: No audible wheezing no accessory muscle usage Cardiovascular exam: regular rate, palpable bilateral pulses, no lower extremity edema Abdominal exam: No distention nontender to palpation Cervical spine: Normal alignment, Spurling's negative, facet loading negative, Clinical Exercise Physiologist strength is 5/5, abebe negative Lumbar spine: Loss of lumbar lordosis, normal alignment, tender to palpation over bilateral paraspinal muscles, facet loading is positive bilaterally. Straight leg raise is negative. Limited range of motion due to pain with flexion, extension and side bending. Tenderness palpation over both SI joints as well as paraspinal muscles Sacroiliac joints: Tender to palpation bilateral, SHANA is negative, [place] negative Neuro exam: Normal sensation in bilateral upper extremities, deep tendon reflexes are 2+ bilateral upper extremities. Normal sensation in bilateral lower extremities. Deep tendon reflexes are 2+ in lower extremities Psych exam: Cooperative, appropriate mood Assessment and Plan Assessment: #1 lumbar radiculopathy #2 lumbar degenerative disc disease #3 ilioinguinal neuralgia Plan: On today's visit discussed with him the risks and benefits of using these medications. I advised him to stop using Xanax moving forward. I advised him that even though he is not using the need to stop phone the prescriptions. I made it very clear that if they continue to fill the Xanax prescriptions with no longer be able to write the opioid medications as scores against a narcotics contract. We will also take a urine drug screen on today's visit and will follow-up on the results on the next time he is here. We'll given 2 scripts today dated 28 days apart we will see with the patient back in 10-11 weeks
== END | disposition home or self-care (01) ==
LOC: PNWHC3 11:06
PROVIDERS: ATTEND Hospitalist
DX: G89.29 Other chronic pain (principal); M51.16 Intervertebral disc disorders with radiculopathy, lumbar region; Z79.891 Long term (current) use of opiate analgesic
CPT/HCPCS: 99211

== ENCOUNTER → 2018-10-23 | Outpatient (CLI) | payer MEDICARE ==
--- NOTE | 2018-10-25 13:40 | P.PAINPG ---
Subjective Progress Note Date: 10/23/18 Jadiel 63-year-old gentleman presents today for follow-up. He has chronic pain secondary to his low back pain and degenerative disc disease, pain secondary to left groin pain after having hernia surgery. He continues to have pain across his low back radiates into both legs. Pain is rated as 1-6 on 10. Pain is worse with activity, lifting, bending and better with pain medications, laying supine. He reports he had this pain for many years and is doing well with the current pain medication regimens. At this point continues use methadone 5 mg 3 times per day as well as [place] 10 mg 2-3 times per day for breakthrough pain. He reports medication significant help him and denies any side effects in the medications. I inquired about his use of Xanax as is been filled in his maps. At previous visits, we have discussed that the use of Xanax along with opioids significantly increases risks for respiratory depression and . At the last visit he stated that he would no longer fill Xanax, however since last prescription with a mail order prescription was filled on 08/20/2018. He has had no prescription since then. UDS was done at last visit which in addition to being positive for opioids, was positive for alcohol. On review of records, it appears that the UDS in 2018 was also positive for alcohol. Patient reports that he only drinks 3-4 drinks per week, over the weekends. We had a lengthy discussion about the risks of combination of opioids and alcohol. Objective - Vital Signs Vital signs: Reviewed in EMR - Exam General: Awake and alert oriented 3 no distress Respiratory exam: No audible wheezing no accessory muscle usage Cardiovascular exam: no lower extremity edema Abdominal exam: No distention Lumbar spine: Loss of lumbar lordosis, normal alignment, tender to palpation over bilateral paraspinal muscles, facet loading is positive bilaterally. Abdiel test is positive on the right. Straight leg raise is negative. Limited range of motion due to pain with flexion, extension and side bending. Tenderness palpation over both SI joints as well as paraspinal muscles Neuro exam: Normal sensation in bilateral lower extremities. Deep tendon reflexes are 2+ in lower extremities. Negative clonus. Cranial nerves are grossly intact Psych exam: Cooperative, appropriate mood Assessment and Plan Assessment: #1 lumbar radiculopathy #2 lumbar degenerative disc disease #3 ilioinguinal neuralgia #4 opioid dependence Plan: On today's visit discussed with him the risks and benefits of using these medications, particularly in combination with alcohol. I informed him that today we will write a one-month prescription for his medications and repeat a UDS at next visit. I informed him that if his UDS remains positive for alcohol, or he refills a prescription for Xanax, we will wean him off opioids. He and his expressed understanding. Unfortunately, the patient takes Plavix following a stroke in 2013. He had stopped the Plavix in 2016 for procedure and suffered a second stroke. His physician does not want him to hold Plavix for any procedures due to this history. Objective - Vital Signs Vital signs: Vital Signs Temp Pulse 83 10/23/18 12:45 Resp 16 10/23/18 12:45 BP 122/76 10/23/18 12:45 Pulse Ox Intake & Output 10/23/18 10/24/18 10/24/18 18:59 06:59 18:59 Weight 70.76 kg PQRS Measure Charge Sheet Measure #130: Documentation of Current Meds in Medical Chart: Patient's medications documented in chart Measure #226: Tobacco Use: Screen & Cessation Intervention: Pt screened for tobacco use AND intervention given Measure #111: Pneumonia Vaccination: Pneumococcal vaccine administered or previously received Measure #47: Advance Care Plan: Advance care planning discussed & documented, pt chose/unable to give Measure #412: Opioid Treatment Agreement: Documented signed opioid trtmnt agreemnt min once during opioid trtmnt Measure #408: Opioid Therapy Follow-up Evaluation: Patient had f/u eval minimum every 3 months during opioid therapy Measure #317: Preventitive Care & Scrn High Bld Press & F/U: Normal blood pressure, f/u not required Measure #128: Body Mass Index (BMI) Screening & Follow-up: BMI documented within normal parameters Measure #131: Pain Assessment & Follow-up: Pain positive & plan documented, Follow-up scheduled Measure #431: Unhealthy Alcohol Use Preventative Care & Scrn: Patient identified as unhealthy alcohol user; counseling given PQRS Narrative: Smoking Status Current every day smoker Narcotic Agreement Date Signed 01/09/18 Blood Pressure 122/76 Pain Intensity [Lower Back] 6 Scale Used Numeric (1 - 10) Hx Alcohol Use (MH) Yes: 4 GLASSES OF WINE A WEEK. Home Medications: Ambulatory Orders Omeprazole [PriLOSEC] 20 cap PO DAILY PRN 05/13/14 Clopidogrel [Plavix] 75 mg PO DAILY 01/14/14 Levothyroxine Sodium [Synthroid] 75 mcg PO QAM 07/01/14 Atorvastatin [Lipitor] 20 mg PO HS 09/19/15 PARoxetine [Paxil] 20 mg PO DAILY 02/10/16 Multivitamins, Thera [Multivitamin (formulary)] 1 each PO DAILY@1200 #30 tab 02/14/16 ALPRAZolam [Xanax] 0.25 mg PO TID PRN 04/07/16 Aspirin 81 mg PO DAILY 04/07/16 Chlorthalidone 25 mg PO DAILY 04/07/16 Lisinopril [Prinivil] 5 mg PO BID 04/07/16 Tamsulosin HCl [Flomax] 1 cap PO DAILY 04/07/16 Finasteride [Proscar] 5 mg PO HS 06/02/16 Lidocaine 5% Oint [Xylocaine 5% Oint] 1 applic TOPICAL TID PRN #1 tube 08/24/16 HYDROcodone/APAP 10-325MG [[place] 10-325] 1 tab PO Q8HR PRN 30 Days #90 tab 02/27/18 Methadone HCl [Dolophine HCl] 5 mg PO TID 04/24/18 Controlled Substance Measures - Controlled Substance Measures Is patient prescribed a controlled substance at discharge?: Yes When asked, does pt state using other controlled substances?: No If prescribed controlled substance>3 days was MAPS reviewed?: Yes If Rx opioid, was Start Talking consent form obtained?: Yes If opioid is for acute pain is fill amount 7 days or less?: No Was information provided regarding opioid addiction?: Yes
== END ==
CPT/HCPCS: 99211

== ENCOUNTER → 2018-11-20 | Outpatient (CLI) | payer MEDICARE | END | disposition home or self-care (01) | LOC: PNWHC3 11:38 | PROVIDERS: ATTEND Specialist | DX: R10.9 Unspecified abdominal pain (principal); Z53.9 Procedure and treatment not carried out, unspecified reason ==

== ENCOUNTER 2024-03-29 19:05 | Emergency (ER) | payer MEDICARE ==
[2024-03-29 19:11] VITALS: TEMP 97.8
--- NOTE | 2024-03-29 19:54 | ED ---
Dizziness HPI - General Chief Complaint: Syncope Stated Complaint: syncope,leg lac Time Seen by Provider: 03/29/24 19:50 Source: patient, EMS, RN notes reviewed Mode of arrival: EMS Limitations: no limitations - History of Present Illness Initial Comments: 68-year-old male with history of CVA, hyperlipidemia, and hypertension presenting to the ER for syncopal episode prior to arrival. Patient was at PCPs office when he was lying supine and reports feeling dizzy. He then passed out while lying supine. He said they told him his blood pressure dropped to the 80s over 60s. Denies headache, chest pain, shortness of breath, or fevers. Reports cough and nasal congestion over the past 4 days. His tested positive for RSV. He was being seen at his PCP office today because around 1:30 PM he dropped a piece of glass from a light fixture which landed on his left lower leg. He states he is on Plavix and the wound would not stop bleeding. - Related Data Home Medications Medication Instructions Recorded Confirmed Omeprazole [PriLOSEC] 20 cap PO DAILY PRN 07/24/13 04/23/21 Clopidogrel [Plavix] 75 mg PO DAILY 01/14/14 04/23/21 Levothyroxine Sodium [Synthroid] 75 mcg PO QAM 07/01/14 04/23/21 Atorvastatin [Lipitor] 20 mg PO HS 09/19/15 04/23/21 ALPRAZolam [Xanax] 0.25 mg PO TID PRN 04/07/16 04/23/21 Aspirin 81 mg PO DAILY 04/07/16 04/23/21 Tamsulosin HCl [Flomax] 0.4 mg PO DAILY 04/07/16 04/23/21 Finasteride [Proscar] 5 mg PO HS 06/02/16 04/23/21 Acetaminophen [Tylenol Extra 500 - 1,000 mg PO DIRECTED PRN 04/23/21 04/23/21 Strength] Sertraline HCl [Zoloft] 50 mg PO HS 04/23/21 04/23/21 Previous Rx's Medication Instructions Recorded Multivitamins, Thera [Multivitamin 1 each PO DAILY@1200 #30 tab 02/14/16 (formulary)] Allergies Allergy/AdvReac Type Severity Reaction Status Date / Time epinephrine Allergy Rapid Verified 04/23/21 11:05 Heart Rate Penicillins Allergy Rash/Hives Verified 04/23/21 11:05 Review of Systems ROS Statement: Those systems with pertinent positive or pertinent negative responses have been documented in the HPI. ROS Other: All systems not noted in ROS Statement are negative. Past Medical History Past Medical History: Asthma, CVA/TIA, Eye Disorder, GERD/Reflux, Hyperlipidemia, Hypertension, Prostate Disorder Additional Past Medical History / Comment(s): Asthma as child. Stroke x2 - 2014, 2016 - residual speech problems.Heart murmur, calcification aortic artery. Hx peptic ulcer. No Rx for HTN, resolved. Has tingling, itching BLE. Has excess saliva x2 years. Cataracts History of Any Multi-Drug Resistant Organisms: None Reported Past Surgical History: Adenoidectomy, Appendectomy, Hernia Repair, Orthopedic Surgery, Tonsillectomy Additional Past Surgical History / Comment(s): ING HERNIA REPAIR 2011 W/ MESH. RT. SHOULDER LIGAMENT REPAIR, HAS PIN IN. HX PAIN CLINIC PROCEEDURES. Colonoscopy. Tooth extractions Past Anesthesia/Blood Transfusion Reactions: No Reported Reaction Past Psychological History: No Psychological Hx Reported Smoking Status: Former smoker - Past Family History Mother Family Medical History: No Reported History General Exam Limitations: no limitations General appearance: alert, in no apparent distress Head exam: Present: atraumatic, normocephalic, normal inspection Eye exam: Present: normal appearance, PERRL, EOMI. Absent: scleral icterus, conjunctival injection, periorbital swelling ENT exam: Present: normal exam, mucous membranes moist Neck exam: Present: normal inspection. Absent: tenderness, meningismus, lympha denopathy Respiratory exam: Present: normal lung sounds bilaterally. Absent: respiratory distress, wheezes, rales, rhonchi, stridor Cardiovascular Exam: Present: regular rate, normal rhythm, normal heart sounds. Absent: systolic murmur, diastolic murmur, rubs, gallop, clicks GI/Abdominal exam: Present: soft, normal bowel sounds. Absent: distended, tenderness, guarding, rebound, rigid Left Lower Leg exam: Present: full ROM, laceration (0.5 cm laceration on anterior distal left leg with no active bleeding). Absent: normal inspection, tenderness, swelling Neurological exam: Present: alert, oriented X3, CN II-XII intact Psychiatric exam: Present: normal affect, normal mood Skin exam: Present: warm, dry, intact, normal color. Absent: rash Course Vital Signs 03/29/24 03/29/24 03/29/24 19:07 20:03 20:04 Temperature 97.8 F Pulse Rate 69 Pulse Rate [ 83 Right Sitting Pulse Oximetery ] Pulse Rate [ 85 Right Standing Pulse Oximetery ] Pulse Rate [ 78 Right Supine Pulse Oximetery ] Respiratory 17 Rate Blood Pressure 112/70 Blood Pressure 127/78 [Right Arm Sitting] Blood Pressure 121/70 [Right Arm Standing] Blood Pressure 122/70 [Right Arm Supine] O2 Sat by Pulse 97 98 98 Oximetry 03/29/24 22:08 Temperature 97.8 F Pulse Rate 85 Pulse Rate [ Right Sitting Pulse Oximetery ] Pulse Rate [ Right Standing Pulse Oximetery ] Pulse Rate [ Right Supine Pulse Oximetery ] Respiratory 19 Rate Blood Pressure 135/76 Blood Pressure [Right Arm Sitting] Blood Pressure [Right Arm Standing] Blood Pressure [Right Arm Supine] O2 Sat by Pulse 98 Oximetry EKG Findings - EKG Results: EKG: interpreted by MARIANAD (EKG reveals normal sinus rhythm with no ST changes. Ventricular rate 77 bpm, MN interval 189, QRS duration 93, QT/QTc 370/402) Medical Decision Making - Medical Decision Making Was pt. sent in by a medical professional or institution (, PA, SENIOR MAINTENANCE MECHANIC, urgent care, hospital, or jail...) When possible be specific @ -No Did you speak to anyone other than the patient for history (EMS, parent, family, police, friend...)? What history was obtained from this source @ -No Did you review nursing and triage notes (agree or disagree)? Why? @ -I reviewed and agree with nursing and triage notes Were old charts reviewed (outside hosp., previous admission, EMS record, old EKG, old radiological studies, urgent care reports/EKG's, jail records)? Report findings @ -No old charts were reviewed Differential Diagnosis (chest pain, altered mental status, abdominal pain women, abdominal pain men, vaginal bleeding, weakness, fever, dyspnea, syncope, headach e, dizziness, GI bleed, back pain, seizure, CVA, palpatations, mental health, musculoskeletal)? @ -Differential Syncope: Valvular disease, hypertrophic cardiomyopathy, pulmonary embolism, tamponade, tachycardia, bradycardia, DE, hypovolemia, hemorrhage, dissection, anemia, intracranial hemorrhage, seizure, hypoglycemia, carbon monoxide poisoning, this is not meant to be an all-inclusive list. EKG interpreted by me (3pts min.). @ -As above X-rays interpreted by me (1pt min.). @ -Chest x-ray reveals no acute CT interpreted by me (1pt min.). @ -None done U/S interpreted by me (1pt. min.). @ -None done What testing was considered but not performed or refused? (CT, X-rays, U/S, labs)? Why? @ -Recommended urinalysis however patient declines and like to be discharged What meds were considered but not given or refused? Why? @ -None Did you discuss the management of the patient with other professionals (professionals i.e. , PA, SENIOR MAINTENANCE MECHANIC, lab, RT, psych nurse, social security benefits interviewer, map clerk, teacher, planned giving officer, bilingual case manager)? Give summary @ -No Was smoking cessation discussed for >3mins.? @ -No Was critical care preformed (if so, how long)? @ -No Were there social determinants of health that impacted care today? How? (Homelessness, low income, unemployed, alcoholism, drug addiction, transportat ion, low edu. Level, literacy, decrease access to med. care, [facility], rehab)? @ -No Was there de-escalation of care discussed even if they declined (Discuss DNR or withdrawal of care, Hospice)? DNR status @ -No What co-morbidities impacted this encounter? (DM, HTN, Smoking, COPD, CAD, Cancer, CVA, ARF, Chemo, Hep., AIDS, mental health diagnosis, sleep apnea, morbid obesity)? @ -None Was patient admitted / discharged? Hospital course, mention meds given and route, prescriptions, significant lab abnormalities, going to OR and other pertinent info. @ -Discharge. This is a 68-year-old male presenting for syncopal episode while at PCP office prior to arrival. No head injury. Currently asymptomatic. Denies chest pain or shortness of breath. Also reports left leg laceration from piece of glass earlier today. Vital signs within acceptable limits. Neuro examination unremarkable. Tetanus was updated and LET applied to wound and was dressed. EKG reveals normal sinus rhythm with no ischemic changes. Lab work remarkable for leukocytosis 13.3 and troponin 0.017 comparable to baseline. Patient is RSV positive. Orthostatic vitals negative. Chest x-ray reveals no acute process. Discussed results with patient. Patient states he is asymptomatic and would like to be discharged. I believe this is reasonable as there does not appear to be emergent etiology for syncopal episode. Appropriate return precautions and follow-up care discussed. Patient is agreeable to plan. Case was discussed with the ED attending Dr. Amado Undiagnosed new problem with uncertain prognosis? @ -No Drug Therapy requiring intensive monitoring for toxicity (Heparin, Nitro, Insulin, Cardizem)? @ -No Were any procedures done? @ -No Diagnosis/symptom? @ -RSV, syncope Acute, or Chronic, or Acute on Chronic? @ -Acute Uncomplicated (without systemic symptoms) or Complicated (systemic symptoms)? @ -Uncomplicated Side effects of treatment? @ -No Exacerbation, Progression, or Severe Exacerbation? @ -No Poses a threat to life or bodily function? How? (Chest pain, USA, DE, pneumonia, PE, COPD, DKA, ARF, appy, cholecystitis, CVA, Diverticulitis, Homicidal, Suicidal, threat to staff... and all critical care pts) @ -Unlikely at this time - Lab Data Result diagrams: 03/29/24 20:00 03/29/24 20:53 Lab Results 03/29/24 03/29/24 03/29/24 Range/Units 20:00 20:00 20:00 WBC 13.3 H (3.8-10.6) k/uL RBC 4.11 L (4.30-5.90) m/uL Hgb 13.3 (13.0-17.5) gm/dL Hct 39.6 (39.0-53.0) % MCV 96.3 (80.0-100.0) fL MCH 32.4 (25.0-35.0) pg MCHC 33.6 (31.0-37.0) g/dL RDW 12.8 (11.5-15.5) % Plt Count 294 (150-450) k/uL MPV 6.8 Neutrophils % 81 % Lymphocytes % 12 % Monocytes % 5 % Eosinophils % 2 % Basophils % 0 % Neutrophils # 10.7 H (1.3-7.7) k/uL Lymphocytes # 1.5 (1.0-4.8) k/uL Monocytes # 0.7 (0-1.0) k/uL Eosinophils # 0.3 (0-0.7) k/uL Basophils # 0.0 (0-0.2) k/uL PT 11.2 (10.0-12.5) sec INR 1.0 (<1.2) APTT 22.6 (22.0-30.0) sec Sodium (137-145) mmol/L Potassium (3.5-5.1) mmol/L Chloride (98-107) mmol/L Carbon Dioxide (22-30) mmol/L Anion Gap mmol/L BUN (9-20) mg/dL Creatinine (0.66-1.25) mg/dL Est GFR (CKD-EPI)AfAm (>60 ml/min/1.73 sqM) Est GFR (CKD-EPI)NonAf (>60 ml/min/1.73 sqM) Glucose (74-99) mg/dL Plasma Lactic Acid Tello 1.1 (0.7-2.0) mmol/L Calcium (8.4-10.2) mg/dL Total Bilirubin (0.2-1.3) mg/dL AST (17-59) U/L ALT (4-49) U/L Alkaline Phosphatase (38-126) U/L Troponin I (0.000-0.034) ng/mL Total Protein (6.3-8.2) g/dL Albumin (3.5-5.0) g/dL Influenza Type A (PCR) (Not Detectd) Influenza Type B (PCR) (Not Detectd) RSV (PCR) (Not Detectd) SARS-CoV-2 (PCR) (Not Detectd) 03/29/24 03/29/24 03/29/24 Range/Units 20:00 20:00 20:53 WBC (3.8-10.6) k/uL RBC (4.30-5.90) m/uL Hgb (13.0-17.5) gm/dL Hct (39.0-53.0) % MCV (80.0-100.0) fL MCH (25.0-35.0) pg MCHC (31.0-37.0) g/dL RDW (11.5-15.5) % Plt Count (150-450) k/uL MPV Neutrophils % % Lymphocytes % % Monocytes % % Eosinophils % % Basophils % % Neutrophils # (1.3-7.7) k/uL Lymphocytes # (1.0-4.8) k/uL Monocytes # (0-1.0) k/uL Eosinophils # (0-0.7) k/uL Basophils # (0-0.2) k/uL PT (10.0-12.5) sec INR (<1.2) APTT (22.0-30.0) sec Sodium 136 L (137-145) mmol/L Potassium 3.7 (3.5-5.1) mmol/L Chloride 108 H (98-107) mmol/L Carbon Dioxide 20 L (22-30) mmol/L Anion Gap 8 mmol/L BUN 9 (9-20) mg/dL Creatinine 0.64 L (0.66-1.25) mg/dL Est GFR (CKD-EPI)AfAm >90 (>60 ml/min/1.73 sqM) Est GFR (CKD-EPI)NonAf >90 (>60 ml/min/1.73 sqM) Glucose 81 (74-99) mg/dL Plasma Lactic Acid Tello (0.7-2.0) mmol/L Calcium 7.6 L (8.4-10.2) mg/dL Total Bilirubin 0.4 (0.2-1.3) mg/dL AST 34 (17-59) U/L ALT 26 (4-49) U/L Alkaline Phosphatase 44 (38-126) U/L Troponin I 0.017 (0.000-0.034) ng/mL Total Protein 6.2 L (6.3-8.2) g/dL Albumin 3.4 L (3.5-5.0) g/dL Influenza Type A (PCR) Not Detected (Not Detectd) Influenza Type B (PCR) Not Detected (Not Detectd) RSV (PCR) Detected A (Not Detectd) SARS-CoV-2 (PCR) Not Detected (Not Detectd) Disposition Clinical Impression: RSV (respiratory syncytial virus infection), Syncope Disposition: HOME SELF-CARE Condition: Stable Instructions (If sedation given, give patient instructions): Respiratory Syncytial Virus (ED), Syncope (ED) Additional Instructions: Follow-up with PCP as discussed. Please return to the Emergency Department if symptoms worsen or any other concerns. Is patient prescribed a controlled substance at d/c from ED?: No Referrals: Matias Vazquez DO [Primary Care Provider] - 1-2 days Time of Disposition: 21:50
[2024-03-29 20:09] VITALS: PULSE 85
[2024-03-29 20:12] LABS: Basophils % (A) 0 %; Eosinophils # (A) 0.3 k/uL (0-0.7); Eosinophils % (A) 2 %; HCT 39.6 % (39.0-53.0); HGB 13.3 gm/dL (13.0-17.5); Lymphocytes # (A) 1.5 k/uL (1.0-4.8); Lymphocytes % (A) 12 %; MCH 32.4 pg (25.0-35.0); MCHC 33.6 g/dL (31.0-37.0); MCV 96.3 fL (80.0-100.0); Mean Platelet Volume 6.8; Monocytes # (A) 0.7 k/uL (0-1.0); Monocytes % (A) 5 %; Neutrophils # (A) 10.7 k/uL (1.3-7.7); Neutrophils % (A) 81 %; Platelet Count 294 k/uL (150-450); RBC 4.11 m/uL (4.30-5.90); RDW 12.8 % (11.5-15.5); WBC 13.3 k/uL (3.8-10.6)
[2024-03-29] MEDS: DIPH,PERTUS(ACELL)TETVAC-LF 0.5 ML VIAL IM ONE (20:22)
[2024-03-29] MEDS: LIDOCAINE/EPINEPHR/TETRACAINE 5 ML BOTTLE TOPICAL ONE (20:22)
[2024-03-29] MEDS: SODIUM CHLORIDE 0.9% 500 ML 500 ML IV STA (20:25)
[2024-03-29 20:33] LABS: Partial Thromboplastin Time 22.6 sec (22.0-30.0); Prothrombin Time 11.2 sec (10.0-12.5)
--- NOTE | 2024-03-29 20:44 | XR ---
EXAMINATION TYPE: XR chest 2V DATE OF EXAM: 03/29/2024 8:32 PM COMPARISON: 11:30 1T 16 CLINICAL INDICATION: Male, 68 years old with history of syncope, cough, TECHNIQUE: XR chest 2V view(s) obtained. FINDINGS: The heart size is normal. The pulmonary vasculature is normal. The lungs are clear. IMPRESSION: 1. No acute pulmonary process. [facility], , 03/29/2024 8:42 PM
[2024-03-29 20:55] LABS: Influenza A Not Detected (Not Detectd); Influenza B Not Detected (Not Detectd); RSV Detected (Not Detectd)
[2024-03-29 21:15] LABS: Chloride 108 mmol/L (98-107)
[2024-03-29 21:16] LABS: ALT 26 U/L (4-49); African American GFR (CKD) >90 (>60 ml/min/1.73 sqM); Albumin 3.4 g/dL (3.5-5.0); Anion Gap 8 mmol/L; Blood Urea Nitrogen 9 mg/dL (9-20); Calcium 7.6 mg/dL (8.4-10.2); Carbon Dioxide 20 mmol/L (22-30); Glucose 81 mg/dL (74-99); Non-African American GFR(CKD) >90 (>60 ml/min/1.73 sqM); Sodium 136 mmol/L (137-145); Total Bilirubin 0.4 mg/dL (0.2-1.3); Total Protein 6.2 g/dL (6.3-8.2)
[2024-03-29 21:18] LABS: AST 34 U/L (17-59); Alkaline Phosphatase 44 U/L (38-126); Potassium 3.7 mmol/L (3.5-5.1)
[2024-03-29 22:11] VITALS: BP 135/76; RESP 19
== END 2024-03-29 22:11 | disposition home or self-care (01) ==
LOC: EC 19:05
DX: S81.812A Laceration without foreign body, left lower leg, initial encounter (principal); R55 Syncope and collapse; B97.4 Respiratory syncytial virus as the cause of diseases classified elsewhere; Z86.73 Personal history of transient ischemic attack (TIA), and cerebral infarction without residual deficits; Z87.891 Personal history of nicotine dependence; Z88.0 Allergy status to penicillin; Z88.8 Allergy status to other drugs, medicaments and biological substances; Z23 Encounter for immunization; W25.XXXA Contact with sharp glass, initial encounter
CPT/HCPCS: 36415; 71046; 80053; 83605; 84484; 85025; 85610; 85730; 87636; 90471; 90715; 93005; 96360; 99284